=== PATIENT | male | born 1985 | race Caucasian/White ===

== ENCOUNTER 2021-09-30 06:56 | Emergency (ER) | payer MEDICAID ==
[2021-09-30] MEDS ORDERED: Diazepam 5 MG Tab PO ONE ×2 (07:34→10:15)
[2021-09-30] MEDS ORDERED: Ondansetron 4 MG Tab.DIS PO ONE ×2 (07:34→08:19)
--- NOTE | 2021-09-30 07:42 | EDM.PDOCBH ---
ED HPI GENERAL MEDICAL PROBLEM - General Chief Complaint: Drug or Alcohol Abuse Stated Complaint: VOMITING,HOT SWEATS Time Seen by Provider: 09/30/21 07:25 Source of Information: Reports: Patient, RN. Denies: Old Records History Limitations: Reports: Other (no old records) - History of Present Illness INITIAL COMMENTS - FREE TEXT/NARRATIVE: 36 yo male presents requesting detox. He is from [place] and was last detox'd about a month ago. Says he's been vomiting a lot lately. Hasn't eaten much lately either due to his heavy drinking or now his nausea and vomiting. He last drank yesterday. Seems to think he is currently in [place]. 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 (see below) (none) sore throat and some in chest Pain Score (Numeric/FACES): 6 - Related Data Allergies Allergy/AdvReac Type Severity Reaction Status Date / Time No Known Allergies Allergy Verified 09/30/21 07:16 Home Meds: Home Meds Escitalopram [Lexapro] 20 mg PO DAILY 09/30/21 [History] Naltrexone HCl [Revia] 50 mg PO Q8HR 09/30/21 [History] hydrOXYzine HCL [Atarax] 25 mg PO Q8H 09/30/21 [History] Past Medical History HEENT History: Reports: None Cardiovascular History: Reports: None Respiratory History: Reports: None Gastrointestinal History: Reports: None Genitourinary History: Reports: None Musculoskeletal History: Reports: None Neurological History: Reports: None Psychiatric History: Reports: Addiction, Anxiety, Depression Endocrine/Metabolic History: Reports: None Immunologic History: Reports: None Oncologic (Cancer) History: Reports: None Dermatologic History: Reports: None - Infectious Disease History Infectious Disease History: Reports: None - Past Surgical History HEENT Surgical History: Reports: None GI Surgical History: Reports: None Male Surgical History: Reports: None Musculoskeletal Surgical History: Reports: None Social & Family History - Tobacco Use Tobacco Use Comment: current smoker - Recreational Drug Use Recreational Drug Use: No ED ROS GENERAL - Review of Systems Review Of Systems: See Below Constitutional: Reports: Malaise HEENT: Reports: No Symptoms Respiratory: Reports: No Symptoms Cardiovascular: Reports: No Symptoms Endocrine: Reports: No Symptoms GI/Abdominal: Reports: Nausea, Vomiting. Denies: Black Stool, Bloody Stool, Diarrhea, Hematemesis : Reports: No Symptoms Musculoskeletal: Reports: No Symptoms Skin: Reports: No Symptoms Neurological: Reports: Tremors Psychiatric: Reports: Anxiety ED EXAM, BEHAVIORAL HEALTH - Physical Exam Exam: See Below Exam Limited By: No Limitations General Appearance: Alert, WD/WN, Mild Distress Eye Exam: Bilateral Eye: Normal Inspection Ears: Normal External Exam, Normal Canal, Hearing Grossly Normal, Normal TMs Nose: Normal Inspection, No Blood Throat/Mouth: Normal Inspection, Normal Lips, Normal Oropharynx, Normal Voice, No Airway Compromise Head: Atraumatic, Normocephalic Neck: Normal Inspection Respiratory/Chest: No Respiratory Distress, Lungs Clear, Normal Breath Sounds, No Accessory Muscle Use Cardiovascular: Regular Rate, Rhythm, No Edema GI/Abdominal: Normal Bowel Sounds, Soft, No Distention, Tender (mild RUQ tenderness). No: Distended Back Exam: Normal Inspection. No: CVA Tenderness (R), CVA Tenderness (L) Extremities: Normal Inspection, Normal Range of Motion, Non-Tender, No Pedal Edema Neurological: Alert, Normal Mood/Affect, CN II-XII Intact, Normal Cognition, No Motor/Sensory Deficits, Tremor Psychiatric: Alert, Other (anxious) Skin Exam: Warm, Dry, Intact, Normal color, No rash COURSE, BEHAVIORAL HEALTH COMP - Course Vital Signs: Last Vital Signs Temp 36.5 C 09/30/21 07:15 Pulse 91 09/30/21 07:15 Resp 30 H 09/30/21 07:15 BP 138/99 H 09/30/21 07:15 Pulse Ox 98 09/30/21 07:15 Orders, Labs, Meds: Active Orders 24 hr Category Date Time Status Alum Hydrox/Mag Hydrox/Simeth [Mag-Al Plus] Med 09/30/21 10:14 Stat 30 ml PO NOW STA diazePAM [Valium.] Med 09/30/21 10:15 Once 5 mg PO ONETIME ONE Medication Orders Al Hydroxide/Mg Hydroxide (Aluminum Hydroxide/Magnesium Hydroxide/Simethicone Susp 30 Ml Cup) 30 ml PO NOW STA Stop: 09/30/21 10:15 Diazepam (Diazepam 5 Mg Tab) 5 mg PO ONETIME ONE Stop: 09/30/21 10:16 Laboratory Tests 09/30/21 09/30/21 09/30/21 Range/Units 07:43 07:43 07:48 WBC 13.7 H (4.5-11.0) K/uL RBC 5.79 (4.30-5.90) M/uL Hgb 17.5 H (12.0-15.0) g/dL Hct 50.7 (40.0-54.0) % MCV 88 (80-98) fL MCH 30 (27-31) pg MCHC 35 (32-36) % Plt Count 234 (150-400) K/uL Sodium (140-148) mmol/L Potassium (3.6-5.2) mmol/L Chloride (100-108) mmol/L Carbon Dioxide (21-32) mmol/L Anion Gap (5.0-14.0) mmol/L BUN (7-18) mg/dL Creatinine (0.8-1.3) mg/dL Est Cr Clr Drug Dosing mL/min Estimated GFR (MDRD) (>60) Glucose (74-106) mg/dL Calcium (8.5-10.1) mg/dL Total Bilirubin (0.2-1.0) mg/dL AST (15-37) U/L ALT (12-78) U/L Alkaline Phosphatase (46-116) U/L Total Protein (6.4-8.2) g/dL Albumin (3.4-5.0) g/dL Globulin (2.3-3.5) g/dL Albumin/Globulin Ratio (1.2-2.2) Urine Color Yellow (YELLOW) Urine Appearance Slightly cloudy A (CLEAR) Urine pH 5.5 (5.0-8.0) Ur Specific [place] >= 1.030 (1.008-1.030) Urine Protein >=300 H (NEGATIVE) mg/dL Urine Glucose (UA) Negative (NEGATIVE) mg/dL Urine Ketones 80 H (NEGATIVE) mg/dL Urine Occult Blood Trace-lysed H (NEGATIVE) Urine Nitrite Negative (NEGATIVE) Urine Bilirubin Negative (NEGATIVE) Urine Urobilinogen 0.2 (0.2-1.0) EU/dL Ur Leukocyte Esterase Negative (NEGATIVE) Urine RBC 0-5 (0-5) Urine WBC Not seen (0-5) Ur Epithelial Cells Not seen Amorphous Sediment Few Urine Bacteria Not seen Urine Mucus Moderate Urine Other See note Urine Opiates Screen Negative (NEGATIVE) Ur Oxycodone Screen Negative (NEGATIVE) Urine Methadone Screen Negative (NEGATIVE) Ur Propoxyphene Screen Negative (NEGATIVE) Ur Barbiturates Screen Negative (NEGATIVE) Ur Tricyclics Screen Negative (NEGATIVE) Ur Phencyclidine Scrn Negative (NEGATIVE) Ur Amphetamine Screen Negative (NEGATIVE) U Methamphetamines Scrn Negative (NEGATIVE) Urine MDMA Screen Negative (NEGATIVE) U Benzodiazepines Scrn Negative (NEGATIVE) U Cocaine Metab Screen Negative (NEGATIVE) U Marijuana (THC) Screen Negative (NEGATIVE) Ethyl Alcohol mg/dL 09/30/21 09/30/21 Range/Units 07:48 08:02 WBC (4.5-11.0) K/uL RBC (4.30-5.90) M/uL Hgb (12.0-15.0) g/dL Hct (40.0-54.0) % MCV (80-98) fL MCH (27-31) pg MCHC (32-36) % Plt Count (150-400) K/uL Sodium 136 L (140-148) mmol/L Potassium 4.1 (3.6-5.2) mmol/L Chloride 92 L (100-108) mmol/L Carbon Dioxide 19 L (21-32) mmol/L Anion Gap 29.1 H (5.0-14.0) mmol/L BUN 15 (7-18) mg/dL Creatinine 1.0 (0.8-1.3) mg/dL Est Cr Clr Drug Dosing 106.46 mL/min Estimated GFR (MDRD) > 60 (>60) Glucose 88 (74-106) mg/dL Calcium 9.0 (8.5-10.1) mg/dL Total Bilirubin 1.9 H (0.2-1.0) mg/dL AST 79 H (15-37) U/L ALT 104 H (12-78) U/L Alkaline Phosphatase 88 (46-116) U/L Total Protein 8.4 H (6.4-8.2) g/dL Albumin 4.8 (3.4-5.0) g/dL Globulin 3.6 H (2.3-3.5) g/dL Albumin/Globulin Ratio 1.3 (1.2-2.2) Urine Color (YELLOW) Urine Appearance (CLEAR) Urine pH (5.0-8.0) Ur Specific [place] (1.008-1.030) Urine Protein (NEGATIVE) mg/dL Urine Glucose (UA) (NEGATIVE) mg/dL Urine Ketones (NEGATIVE) mg/dL Urine Occult Blood (NEGATIVE) Urine Nitrite (NEGATIVE) Urine Bilirubin (NEGATIVE) Urine Urobilinogen (0.2-1.0) EU/dL Ur Leukocyte Esterase (NEGATIVE) Urine RBC (0-5) Urine WBC (0-5) Ur Epithelial Cells Amorphous Sediment Urine Bacteria Urine Mucus Urine Other Urine Opiates Screen (NEGATIVE) Ur Oxycodone Screen (NEGATIVE) Urine Methadone Screen (NEGATIVE) Ur Propoxyphene Screen (NEGATIVE) Ur Barbiturates Screen (NEGATIVE) Ur Tricyclics Screen (NEGATIVE) Ur Phencyclidine Scrn (NEGATIVE) Ur Amphetamine Screen (NEGATIVE) U Methamphetamines Scrn (NEGATIVE) Urine MDMA Screen (NEGATIVE) U Benzodiazepines Scrn (NEGATIVE) U Cocaine Metab Screen (NEGATIVE) U Marijuana (THC) Screen (NEGATIVE) Ethyl Alcohol 104 mg/dL Medications Generic Name Dose Route Start Last Admin Trade Name Freq PRN Reason Stop Dose Admin Al Hydroxide/Mg Hydroxide 30 ml 09/30/21 10:14 Aluminum Hydroxide/Magnesium Hydroxide/Simethicone Susp 30 Ml Cup PO 09/30/21 10:15 NOW STA Diazepam 5 mg 09/30/21 10:15 Diazepam 5 Mg Tab PO 09/30/21 10:16 ONETIME ONE Discontinued Medications Generic Name Dose Route Start Last Admin Trade Name Freq PRN Reason Stop Dose Admin Diazepam 10 mg 09/30/21 07:34 09/30/21 07:41 Diazepam 5 Mg Tab PO 09/30/21 07:35 10 mg ONETIME ONE Administration Ondansetron HCl 4 mg 09/30/21 07:34 09/30/21 07:41 Ondansetron 4 Mg Tab.Dis PO 09/30/21 07:35 4 mg ONETIME ONE Administration Ondansetron HCl 4 mg 09/30/21 08:19 09/30/21 08:39 Ondansetron 4 Mg Tab.Dis PO 09/30/21 08:20 4 mg ONETIME ONE Administration Departure - Departure Time of Disposition: 10:30 Disposition: DC/Tfer to Other 70 Condition: Fair Clinical Impression: Alcohol abuse Alcohol dependence Qualifiers: Substance use status: with intoxication Complication of substance-induced condition: with unspecified complication Qualified Code(s): F10.229 - Alcohol dependence with intoxication, unspecified Alcoholic hepatitis Qualifiers: Ascites presence: without ascites Qualified Code(s): K70.10 - Alcoholic hepatitis without ascites Alcohol intoxication Qualifiers: Complication of substance-induced condition: with unspecified complication Qualified Code(s): F10.929 - Alcohol use, unspecified with intoxication, unspecified Alcoholic gastritis Qualifiers: Chronicity: acute Gastritis bleeding: without bleeding Qualified Code(s): K29.20 - Alcoholic gastritis without bleeding - Discharge Information *PRESCRIPTION DRUG MONITORING PROGRAM REVIEWED*: Not Applicable *COPY OF PRESCRIPTION DRUG MONITORING REPORT IN PATIENT GÓMEZ: Not Applicable Referrals: PCP,None [Primary Care Provider] - Forms: ED Department Discharge Sepsis Event Note (ED) - Evaluation Sepsis Screening Result: No Definite Risk - Focused Exam Vital Signs: Vital Signs Temp Pulse Resp BP Pulse Ox 09/30/21 07:15 36.5 C 91 30 H 138/99 H 98 09/30/21 07:12 36.5 C 91 30 H 138/99 H 98 - My Orders Last 24 Hours: My Active Orders 09/30/21 10:14 Alum Hydrox/Mag Hydrox/Simeth [Mag-Al Plus] 30 ml PO NOW STA 09/30/21 10:15 diazePAM [Valium.] 5 mg PO ONETIME ONE - Assessment/Plan Last 24 Hours: My Active Orders 09/30/21 10:14 Alum Hydrox/Mag Hydrox/Simeth [Mag-Al Plus] 30 ml PO NOW STA 09/30/21 10:15 diazePAM [Valium.] 5 mg PO ONETIME ONE
[2021-09-30] MEDS ORDERED: Aluminum Hydroxide/Magnesium Hydroxide/Simethicone Susp 30 ML Cup PO STA (10:14)
== END 2021-09-30 10:47 | disposition other institution (70) ==
LOC: JP.ED 06:56
DX: K70.10 Alcoholic hepatitis without ascites (principal); K29.20 Alcoholic gastritis without bleeding; F10.229 Alcohol dependence with intoxication, unspecified; Y90.5 Blood alcohol level of 100-119 mg/100 ml
CPT/HCPCS: 36415; 80053; 80305; 80307; 81001; 85027; 99284; A9270

== ENCOUNTER 2021-10-02 22:52 | Inpatient (IN) | payer MEDICAID ==
[2021-10-02] MEDS ORDERED: LORazepam 2 MG/ML SDV IVPUSH ONE (23:17)
[2021-10-02] MEDS ORDERED: Pantoprazole 40 MG Vial IVPUSH ONE (23:17)
--- NOTE | 2021-10-02 23:27 | EDM.PDOCBH ---
ED HPI GENERAL MEDICAL PROBLEM - General Chief Complaint: Drug or Alcohol Abuse Stated Complaint: MEDICAL [facility]IA [facility] Time Seen by Provider: 10/02/21 23:00 Source of Information: Reports: EMS, Provider History Limitations: Reports: Altered Mental Status, Physical Impairment - History of Present Illness INITIAL COMMENTS - FREE TEXT/NARRATIVE: 36-year-old male, chronic alcoholic who is experienced DTs in the past, presents from [facility] acutely confused, mild to moderately agitated, and continuous nausea and vomiting. He attempted to leave [place] several times in his socks, not really because he was being uncooperative but because he was just confused and agitated. They have been fully medicated and just cannot handle him, they also cannot get him to stop vomiting. He is not complaining of pain. He does not know what day it is but he is oriented to person and place. His long-term memory seems to be intact. Onset: Unknown/Unsure Associated Symptoms: Reports: Nausea/Vomiting - Related Data Allergies Allergy/AdvReac Type Severity Reaction Status Date / Time No Known Allergies Allergy Verified 10/02/21 22:54 Home Meds: Home Meds Escitalopram [Lexapro] 20 mg PO DAILY 09/30/21 [History] Naltrexone HCl [Revia] 50 mg PO Q8HR 09/30/21 [History] hydrOXYzine HCL [Atarax] 25 mg PO Q8H 09/30/21 [History] Past Medical History HEENT History: Reports: None Cardiovascular History: Reports: None Respiratory History: Reports: None Gastrointestinal History: Reports: GERD Genitourinary History: Reports: None Musculoskeletal History: Reports: None Neurological History: Reports: Concussion Psychiatric History: Reports: Addiction, Anxiety, Depression Endocrine/Metabolic History: Reports: None Immunologic History: Reports: None Oncologic (Cancer) History: Reports: None Dermatologic History: Reports: None - Infectious Disease History Infectious Disease History: Reports: None - Past Surgical History HEENT Surgical History: Reports: None GI Surgical History: Reports: None Male Surgical History: Reports: None Musculoskeletal Surgical History: Reports: None Social & Family History - Tobacco Use Tobacco Use Status *Q: Current Every Day Tobacco User Years of Tobacco use: 2 Packs/Tins Daily: 0.5 - Caffeine Use Caffeine Use: Reports: Coffee, Energy Drinks, Soda - Alcohol Use Days Per Week of Alcohol Use: 7 Number of Drinks Per Day: 20 Total Drinks Per Week: 140 - Recreational Drug Use Recreational Drug Use: Yes Recreational Drug Type: Reports: Cocaine, Ecstasy, Marijuana/Hashish, Methamphetamine, Oxycodone Recreational Drug Use Frequency: Socially ED ROS GENERAL - Review of Systems Review Of Systems: Unable To Obtain Reason Not Obtained: Patient just cannot give a review of systems, random answers Constitutional: Denies: Fever Respiratory: Denies: Shortness of Breath GI/Abdominal: Reports: Nausea, Vomiting Neurological: Reports: Confusion ED EXAM, BEHAVIORAL HEALTH - Physical Exam Exam: See Below Exam Limited By: Altered Mental Status General Appearance: Alert, Other (Looks uncomfortable due to the active retching, nausea and vomiting and anxiety but not acutely distressed) Eye Exam: Bilateral Eye: Conjunctival Injection (Conjunctival injection, no jaundice) Head: Atraumatic Neck: Non-Tender Respiratory/Chest: Lungs Clear Cardiovascular: Regular Rate, Rhythm, Tachycardia GI/Abdominal: Non-Tender Extremities: Normal Inspection Neurological: Alert, No Motor/Sensory Deficits, Disoriented to Time, Other (Moderate resting tremor) Psychiatric: Alert, Restless, Disoriented Skin Exam: Warm, Dry COURSE, BEHAVIORAL HEALTH COMP - Course Vital Signs: Last Vital Signs Temp 96.4 F L 10/03/21 02:00 Pulse 91 10/03/21 06:00 Resp 12 10/03/21 06:00 BP 125/72 10/03/21 06:00 Pulse Ox 98 10/03/21 06:00 Orders, Labs, Meds: Medication Orders Acetaminophen (Acetaminophen 325 Mg Tab) 650 mg PO Q4H PRN PRN Reason: Pain (Mild 1-3)/fever Folic Acid (Folic Acid 1 Mg Tab) 1 mg PO DAILY LIBRADO Gabapentin (Gabapentin 400 Mg Cap) 400 mg PO TID LIBRADO Last Admin: 10/03/21 02:32 Dose: Not Given Documented by: RAYMUNDO Haloperidol Lactate (Haloperidol Lactate 5 Mg/Ml Sdv) 5 mg IVPUSH Q4H PRN PRN Reason: Agitation/Hallucinations Lorazepam (Lorazepam 2 Mg/Ml Sdv) 0.5 mg IVPUSH Q4H PRN PRN Reason: Nausea/Vomiting Lorazepam (Lorazepam 1 Mg Tab) 0 mg PO ASDIRECTED LIBRADO; Protocol Lorazepam (Lorazepam 2 Mg/Ml Sdv) 0 mg IV ASDIRECTED LIBRADO; Protocol Last Admin: 10/03/21 04:37 Dose: 2 mg Documented by: Admin: 10/03/21 01:52 Dose: 2 mg Documented by: RAYMUNDO Magnesium Hydroxide (Magnesium Hydroxide 400 Mg/5 Ml Susp 30 Ml Cup) 30 ml PO Q12H PRN PRN Reason: Constipation Melatonin (Melatonin 3 Mg Tab) 9 mg PO BEDTIME LIBRADO Ondansetron HCl (Ondansetron 4 Mg/2 Ml Sdv) 4 mg IV Q6H PRN PRN Reason: Nausea/Vomiting Ondansetron HCl (Ondansetron 4 Mg Tab.Dis) 4 mg PO Q6H PRN PRN Reason: Nausea able to take PO Pantoprazole Sodium (Pantoprazole 40 Mg Tab.Cr) 40 mg PO BIDAC LIBRADO Senna/Docusate Sodium (Docusate Sodium/Sennosides 50-8.6 Mg Tab) 1 tab PO BID PRN PRN Reason: Constipation Thiamine HCl (Thiamine 100 Mg Tab) 100 mg PO DAILY LIBRADO Laboratory Tests 10/02/21 10/02/21 Range/Units 23:27 23:27 WBC 6.9 (4.5-11.0) K/uL RBC 5.11 (4.30-5.90) M/uL Hgb 15.9 H (12.0-15.0) g/dL Hct 45.7 (40.0-54.0) % MCV 89 (80-98) fL MCH 31 (27-31) pg MCHC 35 (32-36) % Plt Count 139 L (150-400) K/uL Neut % (Auto) 83.5 H (36-66) % Lymph % (Auto) 7.4 L (24-44) % [place] % (Auto) 8.2 H (2-6) % Eos % (Auto) 0.6 L (2-4) % Baso % (Auto) 0.3 (0-1) % Sodium 135 L (140-148) mmol/L Potassium 3.1 L (3.6-5.2) mmol/L Chloride 93 L (100-108) mmol/L Carbon Dioxide 32 (21-32) mmol/L Anion Gap 13.1 (5.0-14.0) mmol/L BUN 20 H (7-18) mg/dL Creatinine 1.0 (0.8-1.3) mg/dL Est Cr Clr Drug Dosing 106.46 mL/min Estimated GFR (MDRD) > 60 (>60) Glucose 150 H (74-106) mg/dL Calcium 10.1 (8.5-10.1) mg/dL Total Bilirubin 1.2 H (0.2-1.0) mg/dL AST 79 H (15-37) U/L ALT 75 (12-78) U/L Alkaline Phosphatase 81 (46-116) U/L Total Protein 7.6 (6.4-8.2) g/dL Albumin 4.2 (3.4-5.0) g/dL Globulin 3.4 (2.3-3.5) g/dL Albumin/Globulin Ratio 1.2 (1.2-2.2) Lipase 74 (73-393) U/L Medications Generic Name Dose Route Start Last Admin Trade Name Freq PRN Reason Stop Dose Admin Acetaminophen 650 mg 10/03/21 01:09 Acetaminophen 325 Mg Tab PO Q4H PRN Pain (Mild 1-3)/fever Folic Acid 1 mg 10/03/21 09:00 Folic Acid 1 Mg Tab PO DAILY LIBRADO Gabapentin 400 mg 10/03/21 01:09 10/03/21 02:32 Gabapentin 400 Mg Cap PO Not Given TID LIBRADO Haloperidol Lactate 5 mg 10/03/21 01:09 Haloperidol Lactate 5 Mg/Ml Sdv IVPUSH Q4H PRN Agitation/Hallucinations Lorazepam 0.5 mg 10/03/21 01:09 Lorazepam 2 Mg/Ml Sdv IVPUSH Q4H PRN Nausea/Vomiting Lorazepam 0 mg 10/03/21 01:09 Lorazepam 1 Mg Tab PO ASDIRECTED LIBRADO Protocol Lorazepam 0 mg 10/03/21 01:09 10/03/21 04:37 Lorazepam 2 Mg/Ml Sdv IV 2 mg ASDIRECTED LIBRADO Administration Protocol Magnesium Hydroxide 30 ml 10/03/21 01:09 Magnesium Hydroxide 400 Mg/5 Ml Susp 30 Ml Cup PO Q12H PRN Constipation Melatonin 9 mg 10/03/21 21:00 Melatonin 3 Mg Tab PO BEDTIME LIBRADO Ondansetron HCl 4 mg 10/03/21 01:09 Ondansetron 4 Mg/2 Ml Sdv IV Q6H PRN Nausea/Vomiting Ondansetron HCl 4 mg 10/03/21 01:09 Ondansetron 4 Mg Tab.Dis PO Q6H PRN Nausea able to take PO Pantoprazole Sodium 40 mg 10/03/21 07:30 Pantoprazole 40 Mg Tab.Cr PO BIDAC LIBRADO Senna/Docusate Sodium 1 tab 10/03/21 01:09 Docusate Sodium/Sennosides 50-8.6 Mg Tab PO BID PRN Constipation Thiamine HCl 100 mg 10/03/21 09:00 Thiamine 100 Mg Tab PO DAILY LIBRADO Discontinued Medications Generic Name Dose Route Start Last Admin Trade Name Freq PRN Reason Stop Dose Admin Haloperidol Lactate 5 mg 10/03/21 00:03 10/03/21 00:11 Haloperidol Lactate 5 Mg/Ml Sdv IVPUSH 10/03/21 00:04 5 mg ONETIME ONE Administration Multivitamins/Minerals 10 ml/ 1,015.2 mls @ 200 mls/hr 10/03/21 01:09 10/03/21 02:00 Thiamine HCl 100 mg/ Folic IV 10/03/21 06:13 200 mls/hr Acid 1 mg/ Magnesium Sulfate 2 ONETIME ONE Administration gm/ Sodium Chloride Potassium Chloride 20 meq/ 112 mls @ 50 mls/hr 10/03/21 01:30 10/03/21 04:04 Lidocaine HCl 2 ml/ Sodium IV 10/03/21 05:29 50 mls/hr Chloride Q2H LIBRADO Administration Potassium Chloride Confirm 10/03/21 01:36 10/03/21 02:00 Kcl In Water 20 Meq/100 Ml Administered 10/03/21 01:37 50 mls/hr Dose Administration 100 mls @ as directed .ROUTE .STK-MED ONE Potassium Chloride Confirm 10/03/21 01:37 10/03/21 02:33 Kcl In Water 20 Meq/100 Ml Administered 10/03/21 01:38 Not Given Dose 100 mls @ as directed .ROUTE .STK-MED ONE Lidocaine HCl Confirm 10/03/21 01:38 10/03/21 02:33 Lidocaine 1% 5 Ml Sdv Administered 10/03/21 01:39 Not Given Dose 5 ml .ROUTE .STK-MED ONE Lorazepam 2 mg 10/02/21 23:17 10/02/21 23:19 Lorazepam 2 Mg/Ml Sdv IVPUSH 10/02/21 23:18 2 mg ONETIME ONE Administration Pantoprazole Sodium 40 mg 10/02/21 23:17 10/02/21 23:30 Pantoprazole 40 Mg Vial IVPUSH 10/02/21 23:18 40 mg ONETIME ONE Administration Re-Assessment/Re-Exam: IV is already in place, patient will be given 40 mg of IV Protonix and 2 mg of IV Ativan. CBC, CMP, lipase were obtained and are pending. The hospitalist service was called for admission to ICU. Departure - Departure Time of Disposition: 00:26 Disposition: Admitted As Inpatient 67 Clinical Impression: Alcohol withdrawal syndrome Qualifiers: Complication of substance-induced condition: with delirium Qualified Code(s): F10.231 - Alcohol dependence with withdrawal delirium - Discharge Information Sepsis Event Note (ED) - Evaluation Sepsis Screening Result: No Definite Risk - Focused Exam Vital Signs: Vital Signs Temp Pulse Resp BP Pulse Ox 10/02/21 22:54 98.1 F 118 H 18 139/97 H 95
[2021-10-03] MEDS ORDERED: Haloperidol Lactate 5 MG/ML SDV IVPUSH ONE (00:03)
--- NOTE | 2021-10-03 00:11 | PCM.HP.2 ---
H&P History of Present Illness - General Date of Service: 10/03/21 Admit Problem/Dx: Admission Diagnosis/Problem Admission Diagnosis/Problem Alcohol withdrawal delirium, acute, hyperactive Source of Information: Patient, Provider History Limitations: Reports: Altered Mental Status - History of Present Illness Initial Comments - Free Text/Narative: CC: I'm just waiting for my bed HPI: Ramiro presents to the emergency room from [facility] with increasing confusion, hallucinations and agitation despite aggressive medication management at the detox facility. He is very confused and obviously hallucinating and history is extremely difficult and nearly impossible to gather from him. History that I am able to obtain came from the emergency room personnel. He was seen here 2 days ago after heavy alcohol use asking for detox. He was cleared and sent to [facility]. He has had progressive symptoms over the past couple of days to the point that they are not able to accommodate him because of the severity. He appears to be hallucinating and talking to someone else in the room who is not here. He is not sure of the last time that he drank. He has no idea what day it is. He is pretty vague about what he drinks and how much he drinks. He does report previous difficulties with alcohol withdrawal with confusion and hallucinations but he has never had seizures. He does tell me that he is concerned about his esophagus because of the vomiting that he has been doing. He does not currently report any sore throat, chest pain or abdominal pain. He does not feel short of breath. He has received IV pantoprazole and 2 mg of IV lorazepam so far in the emergency room. Work-up in the emergency room revealed obvious evidence for alcohol withdrawal with delirium tremens. Labs show mild hypokalemia but otherwise are not very impressive. He will be admitted to the intensive care unit for management of alcohol withdrawal. - Related Data Allergies/Adverse Reactions: Allergies Allergy/AdvReac Type Severity Reaction Status Date / Time No Known Allergies Allergy Verified 10/02/21 22:54 Home Medications: Home Meds Escitalopram [Lexapro] 20 mg PO DAILY 09/30/21 [History] Naltrexone HCl [Revia] 50 mg PO Q8HR 09/30/21 [History] hydrOXYzine HCL [Atarax] 25 mg PO Q8H 09/30/21 [History] Past Medical History HEENT History: Reports: None Cardiovascular History: Reports: None Respiratory History: Reports: None Gastrointestinal History: Reports: GERD Genitourinary History: Reports: None Musculoskeletal History: Reports: None Neurological History: Reports: Concussion Psychiatric History: Reports: Addiction, Anxiety, Depression Endocrine/Metabolic History: Reports: None Immunologic History: Reports: None Oncologic (Cancer) History: Reports: None Dermatologic History: Reports: None - Infectious Disease History Infectious Disease History: Reports: None - Past Surgical History HEENT Surgical History: Reports: None GI Surgical History: Reports: None Male Surgical History: Reports: None Musculoskeletal Surgical History: Reports: None Social & Family History - Family History Cardiac: Denies: CAD - Tobacco Use Tobacco Use Status *Q: Current Every Day Tobacco User Years of Tobacco use: 2 Packs/Tins Daily: 0.5 - Caffeine Use Caffeine Use: Reports: Coffee, Energy Drinks, Soda - Alcohol Use Days Per Week of Alcohol Use: 7 Number of Drinks Per Day: 20 Total Drinks Per Week: 140 - Recreational Drug Use Recreational Drug Use: Yes Recreational Drug Type: Reports: Cocaine, Ecstasy, Marijuana/Hashish, Methamphetamine, Oxycodone Recreational Drug Use Frequency: Socially H&P Review of Systems - Review of Systems: Review Of Systems: See Below Free Text/Narrative: A complete 12 point review of systems was obtained. Pertinent positives and negatives are noted in the history of present illness. All other systems were reviewed and were negative except as noted. Exam - Exam Exam: See Below - Vital Signs Vital Signs: Last Vital Signs Temp 36.7 C 10/02/21 22:54 Pulse 118 H 10/02/21 22:54 Resp 18 10/02/21 22:54 BP 139/97 H 10/02/21 22:54 Pulse Ox 95 10/02/21 22:54 Weight: 104.326 kg - Exam Quality Assessment: No: Supplemental Oxygen General: Alert, Cooperative. No: Oriented, Mild Distress HEENT: Conjunctiva Clear, Mucosa Moist & [place]. No: Scleral Icterus Neck: Supple, Trachea Midline. No: Lymphadenopathy Lungs: Clear to Auscultation, Normal Respiratory Effort Cardiovascular: Regular Rhythm, Tachycardia. No: Systolic Murmur GI/Abdominal Exam: Normal Bowel Sounds, Soft, Non-Tender, No Distention Extremities: No Pedal Edema. No: Increased Warmth Peripheral Pulses: 2+: Dorsalis Pedis (L), Dorsalis Pedis (R) Skin: Warm, Dry Neuro Extensive - Mental Status: Alert, Nl Response to Commands. No: Oriented x3 Neuro Extensive - Motor, Sensory, Reflexes: Tremor. No: Dysarthria, Abnormal Motor Psychiatric: Alert, Anxious, Hallucinations - Patient Data Lab Results Last 24 hrs: Laboratory Results - last 24 hr 10/02/21 10/02/21 Range/Units 23:27 23:27 WBC 6.9 (4.5-11.0) K/uL RBC 5.11 (4.30-5.90) M/uL Hgb 15.9 H (12.0-15.0) g/dL Hct 45.7 (40.0-54.0) % MCV 89 (80-98) fL MCH 31 (27-31) pg MCHC 35 (32-36) % Plt Count 139 L (150-400) K/uL Neut % (Auto) 83.5 H (36-66) % Lymph % (Auto) 7.4 L (24-44) % [place] % (Auto) 8.2 H (2-6) % Eos % (Auto) 0.6 L (2-4) % Baso % (Auto) 0.3 (0-1) % Sodium 135 L (140-148) mmol/L Potassium 3.1 L (3.6-5.2) mmol/L Chloride 93 L (100-108) mmol/L Carbon Dioxide 32 (21-32) mmol/L Anion Gap 13.1 (5.0-14.0) mmol/L BUN 20 H (7-18) mg/dL Creatinine 1.0 (0.8-1.3) mg/dL Est Cr Clr Drug Dosing 106.46 mL/min Estimated GFR (MDRD) > 60 (>60) Glucose 150 H (74-106) mg/dL Calcium 10.1 (8.5-10.1) mg/dL Total Bilirubin 1.2 H (0.2-1.0) mg/dL AST 79 H (15-37) U/L ALT 75 (12-78) U/L Alkaline Phosphatase 81 (46-116) U/L Total Protein 7.6 (6.4-8.2) g/dL Albumin 4.2 (3.4-5.0) g/dL Globulin 3.4 (2.3-3.5) g/dL Albumin/Globulin Ratio 1.2 (1.2-2.2) Lipase 74 (73-393) U/L Result Diagrams: 10/02/21 23:27 10/02/21 23:27 Sepsis Event Note - Evaluation Sepsis Screening Result: No Definite Risk - Focused Exam Vital Signs: Vital Signs Temp Pulse Resp BP Pulse Ox 10/02/21 22:54 36.7 C 118 H 18 139/97 H 95 *Q Meaningful Use (ADM) - VTE Risk Assess *Q Each Risk Factor Represents 1 Point: Obesity ( BMI > 25 kg/m2) Total Score 1 Point Risk Factors: 1 Each Risk Factor Represents 2 Points: None Total Score 2 Point Risk Factors: 0 Each Risk Factor Represents 3 Points: None Total Score 3 Point Risk Factors: 0 Each Risk Factor Represents 5 Points: None Total Score 5 Point Risk Factors: 0 Venous Thromboembolism Risk Factor Score *Q: 1 - Problem List (1) Alcohol withdrawal delirium, acute, hyperactive SNOMED Code(s): 3578406, 04313705, 77547777935977670 ICD Code: F10.231 - ALCOHOL DEPENDENCE WITH WITHDRAWAL DELIRIUM Status: Acute Current Visit: Yes (2) Alcohol dependence SNOMED Code(s): 42990394 ICD Code: F10.20 - ALCOHOL DEPENDENCE, UNCOMPLICATED Status: Acute Current Visit: No Qualifiers: Substance use status: in withdrawal Complication of substance-induced condition: with delirium Qualified Code(s): F10.231 - Alcohol dependence with withdrawal delirium Problem List Initiated/Reviewed/Updated: Yes Orders Last 24hrs: Active Orders 24 hr Category Date Time Status Patient Status Manage Transfer [TRANSFER] Routine ADT 10/03/21 00:04 Ordered Resuscitation Status Routine Resus Stat 10/03/21 00:05 Ordered Assessment/Plan Comment:: ASSESSMENT AND PLAN - Alcohol withdrawal with delirium tremens-currently in the hyperactive phase of alcohol withdrawal with obvious hallucinations and some agitation. He has been redirectable so far. History of similar episodes but no seizures. Unknown date and time of last drink. -CIWA protocol with lorazepam -Haldol for severe agitation and hallucinations -Banana bag tonight -Supplement thiamine and folate -Cardiac monitoring and pulse oximetry -Further discussion about alcohol cessation when he is through the withdrawal phase Alcohol dependence-reported long history of alcohol use with large quantities and previous alcohol withdrawal. -Management as above Hypokalemia-with his nausea and vomiting I am planning to supplement via the IV route overnight and will recheck tomorrow. Maintenance issues - -DVT prophylaxis-mechanical -GI prophylaxis-PPI -Nutrition-regular -Luu catheter-not indicated CODE STATUS -full code Admission justification -this patient will be admitted for inpatient services and is medically appropriate meeting medical necessity for inpatient admission as outlined in my documentation. I reasonably expect the patient will require inpatient services that span a period time over 2 midnights. I reasonably expect this patient to be discharged or transferred within 96 hours after admission to the [facility]. Disposition -I anticipate discharge home after the hospital stay Cr Luna M.D. - Mortality Measure Prognosis:: Good
[2021-10-03] MEDS ORDERED: LORazepam 2 MG/ML SDV IVPUSH PRN (01:09)
[2021-10-03] MEDS ORDERED: Ondansetron 4 MG Tab.DIS PO PRN (01:09)
[2021-10-03] MEDS ORDERED: MVI, Adult with Vitamin K 10 ML, Thiamine 100 MG, Folic Acid 1 MG, Magnesium Sulfate 2 ... IV ONE ×5 (01:09)
[2021-10-03] MEDS ORDERED: Magnesium Hydroxide 400 MG/5 ML Susp 30 ML Cup PO PRN (01:09)
[2021-10-03] MEDS ORDERED: Ondansetron 4 MG/2 ML SDV IV PRN (01:09)
[2021-10-03 01:19] LABS: CORONAVIRUS COVID-19 NAA POSITIVE (NEGATIVE)
[2021-10-03] MEDS ORDERED: Potassium Chloride 100 ML ONE ×2 (01:36→01:37)
[2021-10-03] MEDS: LORazepam 2 MG/ML SDV IV SCH ×2 (01:52→04:37)
[2021-10-03] MEDS: Potassium Chloride 20 MEQ, Lidocaine 1% 2 ML in Sodium Chloride 0.9% 100 ML IV SCH ×2 (02:05→04:04)
[2021-10-03] MEDS: Gabapentin 400 MG Cap PO SCH ×4 (02:32→21:32)
[2021-10-03] MEDS: LORazepam 1 MG Tab PO SCH ×4 (07:24→18:12)
[2021-10-03] MEDS: Pantoprazole 40 MG Tab.CR PO SCH ×2 (07:27→15:41)
[2021-10-03] MEDS: Folic Acid 1 MG Tab PO SCH (08:17)
[2021-10-03] MEDS: Thiamine 100 MG Tab PO SCH (08:17)
--- NOTE | 2021-10-03 09:39 | PCM.PN ---
- General Info Date of Service: 10/03/21 Subjective Update: No acute events overnight. Patient was lethargic and sleeping when I saw him this morning so I was not able to get any history from him. He has been awake to eat here and there. Continues to be somewhat agitated and impulsive. He has received multiple doses of lorazepam and some Haldol to help with his alcohol withdrawal. When he is medicated his vital signs are stable but he does become more hypertensive and tachycardic when he is nearing his next dose of medication. - Review of Systems General: Denies: Fever - Patient Data Vitals - Most Recent: Last Vital Signs Temp 36.8 C 10/03/21 07:00 Pulse 97 10/03/21 09:00 Resp 16 10/03/21 09:00 BP 130/65 10/03/21 09:00 Pulse Ox 96 10/03/21 08:00 Weight - Most Recent: 97.069 kg I&O - Last 24 Hours: Intake & Output 10/02/21 10/03/21 10/03/21 22:59 06:59 14:59 Intake Total 998 Output Total 250 Balance 998 -250 Lab Results Last 24 Hours: Laboratory Results - last 24 hr 10/02/21 10/02/21 10/03/21 Range/Units 23:27 23:27 00:24 WBC 6.9 (4.5-11.0) K/uL RBC 5.11 (4.30-5.90) M/uL Hgb 15.9 H (12.0-15.0) g/dL Hct 45.7 (40.0-54.0) % MCV 89 (80-98) fL MCH 31 (27-31) pg MCHC 35 (32-36) % Plt Count 139 L (150-400) K/uL Neut % (Auto) 83.5 H (36-66) % Lymph % (Auto) 7.4 L (24-44) % [place] % (Auto) 8.2 H (2-6) % Eos % (Auto) 0.6 L (2-4) % Baso % (Auto) 0.3 (0-1) % Sodium 135 L (140-148) mmol/L Potassium 3.1 L (3.6-5.2) mmol/L Chloride 93 L (100-108) mmol/L Carbon Dioxide 32 (21-32) mmol/L Anion Gap 13.1 (5.0-14.0) mmol/L BUN 20 H (7-18) mg/dL Creatinine 1.0 (0.8-1.3) mg/dL Est Cr Clr Drug Dosing 106.46 mL/min Estimated GFR (MDRD) > 60 (>60) Glucose 150 H (74-106) mg/dL Calcium 10.1 (8.5-10.1) mg/dL Total Bilirubin 1.2 H (0.2-1.0) mg/dL AST 79 H (15-37) U/L ALT 75 (12-78) U/L Alkaline Phosphatase 81 (46-116) U/L Total Protein 7.6 (6.4-8.2) g/dL Albumin 4.2 (3.4-5.0) g/dL Globulin 3.4 (2.3-3.5) g/dL Albumin/Globulin Ratio 1.2 (1.2-2.2) Lipase 74 (73-393) U/L Influenza Type A RNA Negative (NEGATIVE) RSV RNA (INAAT) Negative (NEGATIVE) Influenza Type B RNA Negative (NEGATIVE) SARS-CoV-2 RNA (MAGDA) Positive H (NEGATIVE) Med Orders - Current: Current Medications Acetaminophen (Acetaminophen 325 Mg Tab) 650 mg PO Q4H PRN PRN Reason: Pain (Mild 1-3)/fever Folic Acid (Folic Acid 1 Mg Tab) 1 mg PO DAILY [facility] Last Admin: 10/03/21 08:17 Dose: 1 mg Documented by: Gabapentin (Gabapentin 400 Mg Cap) 400 mg PO TID LIBRADO Last Admin: 10/03/21 08:17 Dose: 400 mg Documented by: Haloperidol Lactate (Haloperidol Lactate 5 Mg/Ml Sdv) 5 mg IVPUSH Q4H PRN PRN Reason: Agitation/Hallucinations Lorazepam (Lorazepam 2 Mg/Ml Sdv) 0.5 mg IVPUSH Q4H PRN PRN Reason: Nausea/Vomiting Lorazepam (Lorazepam 1 Mg Tab) 0 mg PO ASDIRECTED LIBRADO; Protocol Last Admin: 10/03/21 07:24 Dose: 1 mg Documented by: Lorazepam (Lorazepam 2 Mg/Ml Sdv) 0 mg IV ASDIRECTED LIBRADO; Protocol Last Admin: 10/03/21 04:37 Dose: 2 mg Documented by: Magnesium Hydroxide (Magnesium Hydroxide 400 Mg/5 Ml Susp 30 Ml Cup) 30 ml PO Q12H PRN PRN Reason: Constipation Melatonin (Melatonin 3 Mg Tab) 9 mg PO BEDTIME [facility] Ondansetron HCl (Ondansetron 4 Mg/2 Ml Sdv) 4 mg IV Q6H PRN PRN Reason: Nausea/Vomiting Ondansetron HCl (Ondansetron 4 Mg Tab.Dis) 4 mg PO Q6H PRN PRN Reason: Nausea able to take PO Pantoprazole Sodium (Pantoprazole 40 Mg Tab.Cr) 40 mg PO BIDAC [facility] Last Admin: 10/03/21 07:27 Dose: 40 mg Documented by: Senna/Docusate Sodium (Docusate Sodium/Sennosides 50-8.6 Mg Tab) 1 tab PO BID PRN PRN Reason: Constipation Thiamine HCl (Thiamine 100 Mg Tab) 100 mg PO DAILY [facility] Last Admin: 10/03/21 08:17 Dose: 100 mg Documented by: Discontinued Medications Haloperidol Lactate (Haloperidol Lactate 5 Mg/Ml Sdv) 5 mg IVPUSH ONETIME ONE Stop: 10/03/21 00:04 Last Admin: 10/03/21 00:11 Dose: 5 mg Documented by: Multivitamins/Minerals 10 ml/Thiamine HCl 100 mg/ Folic Acid 1 mg/ Magnesium Sulfate 2 gm/ Sodium Chloride 1,015.2 mls @ 200 mls/hr IV ONETIME ONE Stop: 10/03/21 06:13 Last Admin: 10/03/21 02:00 Dose: 200 mls/hr Documented by: Potassium Chloride 20 meq/Lidocaine HCl 2 ml/ Sodium Chloride 112 mls @ 50 mls/hr IV Q2H [facility] Stop: 10/03/21 05:29 Last Admin: 10/03/21 04:04 Dose: 50 mls/hr Documented by: Potassium Chloride (Kcl In Water 20 Meq/100 Ml) Confirm Administered Dose 100 mls @ as directed .ROUTE .STK-MED ONE Stop: 10/03/21 01:37 Last Admin: 10/03/21 02:00 Dose: 50 mls/hr Documented by: Potassium Chloride (Kcl In Water 20 Meq/100 Ml) Confirm Administered Dose 100 mls @ as directed .ROUTE .STK-MED ONE Stop: 10/03/21 01:38 Last Admin: 10/03/21 02:33 Dose: Not Given Documented by: Lidocaine HCl (Lidocaine 1% 5 Ml Sdv) Confirm Administered Dose 5 ml .ROUTE .STK-MED ONE Stop: 10/03/21 01:39 Last Admin: 10/03/21 02:33 Dose: Not Given Documented by: Lorazepam (Lorazepam 2 Mg/Ml Sdv) 2 mg IVPUSH ONETIME ONE Stop: 10/02/21 23:18 Last Admin: 10/02/21 23:19 Dose: 2 mg Documented by: Pantoprazole Sodium (Pantoprazole 40 Mg Vial) 40 mg IVPUSH ONETIME ONE Stop: 10/02/21 23:18 Last Admin: 10/02/21 23:30 Dose: 40 mg Documented by: - Exam Quality Assessment: No: Supplemental Oxygen General: No Acute Distress, Sedated. No: Alert Lungs: Normal Respiratory Effort. No: Wheezing Cardiovascular: Regular Rate, Regular Rhythm GI/Abdominal Exam: Soft, No Distention Extremities: No Pedal Edema. No: Increased Warmth Skin: Warm, Dry Psy/Mental Status: No: Alert, Agitated - Patient Data Lab Results Last 24 hrs: Laboratory Results - last 24 hr 10/02/21 10/02/21 10/03/21 Range/Units 23:27 23:27 00:24 WBC 6.9 (4.5-11.0) K/uL RBC 5.11 (4.30-5.90) M/uL Hgb 15.9 H (12.0-15.0) g/dL Hct 45.7 (40.0-54.0) % MCV 89 (80-98) fL MCH 31 (27-31) pg MCHC 35 (32-36) % Plt Count 139 L (150-400) K/uL Neut % (Auto) 83.5 H (36-66) % Lymph % (Auto) 7.4 L (24-44) % [place] % (Auto) 8.2 H (2-6) % Eos % (Auto) 0.6 L (2-4) % Baso % (Auto) 0.3 (0-1) % Sodium 135 L (140-148) mmol/L Potassium 3.1 L (3.6-5.2) mmol/L Chloride 93 L (100-108) mmol/L Carbon Dioxide 32 (21-32) mmol/L Anion Gap 13.1 (5.0-14.0) mmol/L BUN 20 H (7-18) mg/dL Creatinine 1.0 (0.8-1.3) mg/dL Est Cr Clr Drug Dosing 106.46 mL/min Estimated GFR (MDRD) > 60 (>60) Glucose 150 H (74-106) mg/dL Calcium 10.1 (8.5-10.1) mg/dL Total Bilirubin 1.2 H (0.2-1.0) mg/dL AST 79 H (15-37) U/L ALT 75 (12-78) U/L Alkaline Phosphatase 81 (46-116) U/L Total Protein 7.6 (6.4-8.2) g/dL Albumin 4.2 (3.4-5.0) g/dL Globulin 3.4 (2.3-3.5) g/dL Albumin/Globulin Ratio 1.2 (1.2-2.2) Lipase 74 (73-393) U/L Influenza Type A RNA Negative (NEGATIVE) RSV RNA (INAAT) Negative (NEGATIVE) Influenza Type B RNA Negative (NEGATIVE) SARS-CoV-2 RNA (MAGDA) Positive H (NEGATIVE) Result Diagrams: 10/02/21 23:27 10/02/21 23:27 Sepsis Event Note - Evaluation Sepsis Screening Result: No Definite Risk - Focused Exam Vital Signs: Vital Signs Temp Temp Pulse Resp BP Pulse Ox 10/03/21 09:00 97 16 130/65 10/03/21 08:00 96 18 123/70 96 10/03/21 07:00 36.8 C 94 17 113/61 95 10/03/21 06:00 91 12 125/72 98 10/03/21 05:00 94 16 128/72 94 L 10/03/21 04:00 102 H 16 115/59 L 93 L 10/03/21 03:00 99 16 121/51 L 93 L 10/03/21 02:28 93 L 10/03/21 02:00 35.8 C L 96 15 142/78 H 93 L 10/02/21 22:54 36.7 C 118 H 18 139/97 H 95 - Problem List & Annotations (1) Alcohol withdrawal delirium, acute, hyperactive SNOMED Code(s): 3844603, 38533783, [id number] Code(s): F10.231 - ALCOHOL DEPENDENCE WITH WITHDRAWAL DELIRIUM Status: Acute Current Visit: Yes (2) Alcohol dependence SNOMED Code(s): 12677551 Code(s): F10.20 - ALCOHOL DEPENDENCE, UNCOMPLICATED Status: Acute Current Visit: No Qualifiers: Substance use status: in withdrawal Complication of substance-induced condition: with delirium Qualified Code(s): F10.231 - Alcohol dependence with withdrawal delirium - Problem List Review Problem List Initiated/Reviewed/Updated: Yes - My Orders Last 24 Hours: My Active Orders 10/03/21 00:05 Resuscitation Status Routine 10/03/21 01:09 Acetaminophen [TylenoL] 650 mg PO Q4H PRN Docusate Sodium/Sennosides [Senna Plus] 1 tab PO BID PRN Gabapentin [Neurontin] 400 mg PO TID Haloperidol Lactate [Haldol] 5 mg IVPUSH Q4H PRN LORazepam [Ativan] 0.5 mg IVPUSH Q4H PRN LORazepam [Ativan] See Protocol IV ASDIRECTED LORazepam [Ativan] See Protocol PO ASDIRECTED Magnesium Hydroxide [Milk of Magnesia] 30 ml PO Q12H PRN Ondansetron [Zofran ODT] 4 mg PO Q6H PRN Ondansetron [Zofran] 4 mg IV Q6H PRN 10/03/21 01:09 Patient Status [ADT] Routine Antiembolic Devices [RC] .Routine Bedrest Bedside Commode [RC] ASDIRECTED CIWAA Assessment [RC] Q1H Cardiac Monitoring [RC] CONTINUOUS Intake and Output [RC] QSHIFT Notify Provider Vital Signs [RC] ASDIRECTED Notify Provider [RC] PRN Oxygen Therapy [RC] PRN Pulse Oximetry [RC] CONTINUOUS VTE/DVT Education [RC] Per Unit Routine Vital Signs [RC] Q1HR Sequential Compression Device [OM.PC] Routine 10/03/21 07:30 Pantoprazole [ProTONIX] 40 mg PO BIDAC 10/03/21 07:56 Nurse Communication: Isolation [RC] ASDIRECTED Isolation [COMM] Routine 10/03/21 Breakfast Regular Diet [DIET] 10/03/21 09:00 Folic Acid 1 mg PO DAILY Thiamine [Vitamin B-1] 100 mg PO DAILY 10/03/21 21:00 Melatonin 9 mg PO BEDTIME 10/04/21 05:00 BASIC METABOLIC PANEL,BMP [CHEM] Timed CBC W/O DIFF,HEMOGRAM [HEME] Timed (1) COMPREHENSIVE METABOLIC PN,CMP [CHEM] Timed - Plan Plan:: ASSESSMENT AND PLAN - Alcohol withdrawal with delirium tremens-currently in the hyperactive phase of alcohol withdrawal with obvious hallucinations and some agitation. Intermittently agitated though he does seem a little bit better today. -CIWA protocol with lorazepam -Haldol for severe agitation and hallucinations -Supplement thiamine and folate -Cardiac monitoring and pulse oximetry -Further discussion about alcohol cessation when he is through the withdrawal phase Alcohol dependence-reported long history of alcohol use with large quantities and previous alcohol withdrawal. -Management as above Hypokalemia-with his nausea and vomiting I am planning to supplement via the IV route overnight and will recheck tomorrow. Maintenance issues - -DVT prophylaxis-mechanical -GI prophylaxis-PPI -Nutrition-regular Disposition -I anticipate discharge home after the hospital stay Cr Luna M.D.
[2021-10-03] MEDS: Calcium Carbonate 500 MG Tab.Chew PO PRN ×4 (11:14→21:32)
[2021-10-03] MEDS: Haloperidol Lactate 5 MG/ML SDV IVPUSH PRN ×2 (13:47→21:32)
[2021-10-03] MEDS ORDERED: Alum Hydrox/Mag Hydrox/Simeth 15 ML, Lidocaine 2% 15 ML PO ONE ×2 (14:15)
[2021-10-03] MEDS ORDERED: Nicotine 21 MG/24 Hr Patch TRDERM ONE (15:00)
[2021-10-03] MEDS: Acetaminophen 325 MG Tab PO PRN (18:11)
[2021-10-03] MEDS: Melatonin 3 MG Tab PO SCH (21:32)
[2021-10-04] MEDS: LORazepam 1 MG Tab PO SCH ×2 (01:05→21:32)
[2021-10-04] MEDS: Calcium Carbonate 500 MG Tab.Chew PO PRN ×5 (01:06→21:33)
[2021-10-04] MEDS: Haloperidol Lactate 5 MG/ML SDV IVPUSH PRN (05:01)
[2021-10-04] MEDS: Pantoprazole 40 MG Tab.CR PO SCH ×2 (08:04→17:41)
[2021-10-04] MEDS: Thiamine 100 MG Tab PO SCH (08:06)
[2021-10-04] MEDS: Nicotine 21 MG/24 Hr Patch TRDERM SCH (08:07)
[2021-10-04] MEDS: Gabapentin 400 MG Cap PO SCH ×3 (08:08→21:32)
[2021-10-04] MEDS: Folic Acid 1 MG Tab PO SCH (08:34)
--- NOTE | 2021-10-04 14:31 | PCM.PN ---
- General Info Date of Service: 10/04/21 Subjective Update: No acute events overnight. Patient appears to be about finished with his alcohol withdrawal. He is much more alert and interactive today minimal needs for medications to manage his withdrawal. Appetite is improving. Heartburn is improving. No significant nausea. Vital signs have been stable. No fevers. - Patient Data Vitals - Most Recent: Last Vital Signs Temp 35.7 C L 10/04/21 04:00 Pulse 111 H 10/04/21 13:00 Resp 12 10/04/21 13:00 BP 122/57 L 10/04/21 13:00 Pulse Ox 97 10/04/21 13:00 Weight - Most Recent: 88.133 kg I&O - Last 24 Hours: Intake & Output 10/03/21 10/04/21 10/04/21 22:59 06:59 14:59 Intake Total 1100 1260 Output Total 200 Balance 900 1260 Lab Results Last 24 Hours: Laboratory Results - last 24 hr 10/04/21 10/04/21 Range/Units 04:50 04:50 WBC 4.2 L (4.5-11.0) K/uL RBC 4.49 (4.30-5.90) M/uL Hgb 13.9 D (12.0-15.0) g/dL Hct 42.0 (40.0-54.0) % MCV 94 (80-98) fL MCH 31 (27-31) pg MCHC 33 (32-36) % Plt Count 93 L (150-400) K/uL Sodium 140 (140-148) mmol/L Potassium 3.9 (3.6-5.2) mmol/L Chloride 100 (100-108) mmol/L Carbon Dioxide 34 H (21-32) mmol/L Anion Gap 9.9 (5.0-14.0) mmol/L BUN 18 (7-18) mg/dL Creatinine 1.0 (0.8-1.3) mg/dL Est Cr Clr Drug Dosing 106.46 mL/min Estimated GFR (MDRD) > 60 (>60) Glucose 102 (74-106) mg/dL Calcium 8.8 (8.5-10.1) mg/dL Total Bilirubin 0.5 D (0.2-1.0) mg/dL AST 41 H (15-37) U/L ALT 55 (12-78) U/L Alkaline Phosphatase 80 (46-116) U/L Total Protein 6.2 L (6.4-8.2) g/dL Albumin 3.2 L (3.4-5.0) g/dL Globulin 3.0 (2.3-3.5) g/dL Albumin/Globulin Ratio 1.1 L (1.2-2.2) Med Orders - Current: Current Medications Acetaminophen (Acetaminophen 325 Mg Tab) 650 mg PO Q4H PRN PRN Reason: Pain (Mild 1-3)/fever Last Admin: 10/03/21 18:11 Dose: 650 mg Documented by: Calcium Carbonate/Glycine (Calcium Carbonate 500 Mg Tab.Chew) 1,000 mg PO Q2H PRN PRN Reason: Indigestion Last Admin: 10/04/21 05:00 Dose: 1,000 mg Documented by: Folic Acid (Folic Acid 1 Mg Tab) 1 mg PO DAILY [facility] Last Admin: 10/04/21 08:34 Dose: 1 mg Documented by: Gabapentin (Gabapentin 400 Mg Cap) 400 mg PO TID [facility] Last Admin: 10/04/21 08:08 Dose: 400 mg Documented by: Haloperidol Lactate (Haloperidol Lactate 5 Mg/Ml Sdv) 5 mg IVPUSH Q4H PRN PRN Reason: Agitation/Hallucinations Last Admin: 10/04/21 05:01 Dose: 5 mg Documented by: Lorazepam (Lorazepam 2 Mg/Ml Sdv) 0.5 mg IVPUSH Q4H PRN PRN Reason: Nausea/Vomiting Lorazepam (Lorazepam 1 Mg Tab) 0 mg PO ASDIRECTED [facility]; Protocol Last Admin: 10/04/21 01:05 Dose: 1 mg Documented by: Lorazepam (Lorazepam 2 Mg/Ml Sdv) 0 mg IV ASDIRECTED [facility]; Protocol Last Admin: 10/03/21 04:37 Dose: 2 mg Documented by: Magnesium Hydroxide (Magnesium Hydroxide 400 Mg/5 Ml Susp 30 Ml Cup) 30 ml PO Q12H PRN PRN Reason: Constipation Melatonin (Melatonin 3 Mg Tab) 9 mg PO BEDTIME [facility] Last Admin: 10/03/21 21:32 Dose: 9 mg Documented by: Nicotine (Nicotine 21 Mg/24 Hr Patch) 21 mg TRDERM DAILY [facility] Last Admin: 10/04/21 08:07 Dose: 21 mg Documented by: Ondansetron HCl (Ondansetron 4 Mg/2 Ml Sdv) 4 mg IV Q6H PRN PRN Reason: Nausea/Vomiting Ondansetron HCl (Ondansetron 4 Mg Tab.Dis) 4 mg PO Q6H PRN PRN Reason: Nausea able to take PO Last Admin: 10/03/21 11:11 Dose: 4 mg Documented by: Pantoprazole Sodium (Pantoprazole 40 Mg Tab.Cr) 40 mg PO BIDAC [facility] Last Admin: 10/04/21 08:04 Dose: 40 mg Documented by: Senna/Docusate Sodium (Docusate Sodium/Sennosides 50-8.6 Mg Tab) 1 tab PO BID PRN PRN Reason: Constipation Thiamine HCl (Thiamine 100 Mg Tab) 100 mg PO DAILY [facility] Last Admin: 10/04/21 08:06 Dose: 100 mg Documented by: Discontinued Medications Al Hydroxide/Mg Hydroxide 15 (ml/ Lidocaine HCl 15 ml) 0 ml PO ONETIME ONE Stop: 10/03/21 14:16 Last Admin: 10/03/21 14:09 Dose: 30 ml Documented by: Haloperidol Lactate (Haloperidol Lactate 5 Mg/Ml Sdv) 5 mg IVPUSH ONETIME ONE Stop: 10/03/21 00:04 Last Admin: 10/03/21 00:11 Dose: 5 mg Documented by: Multivitamins/Minerals 10 ml/Thiamine HCl 100 mg/ Folic Acid 1 mg/ Magnesium Sulfate 2 gm/ Sodium Chloride 1,015.2 mls @ 200 mls/hr IV ONETIME ONE Stop: 10/03/21 06:13 Last Admin: 10/03/21 02:00 Dose: 200 mls/hr Documented by: Potassium Chloride 20 meq/Lidocaine HCl 2 ml/ Sodium Chloride 112 mls @ 50 mls/hr IV Q2H [facility] Stop: 10/03/21 05:29 Last Admin: 10/03/21 04:04 Dose: 50 mls/hr Documented by: Potassium Chloride (Kcl In Water 20 Meq/100 Ml) Confirm Administered Dose 100 mls @ as directed .ROUTE .STK-MED ONE Stop: 10/03/21 01:37 Last Admin: 10/03/21 02:00 Dose: 50 mls/hr Documented by: Potassium Chloride (Kcl In Water 20 Meq/100 Ml) Confirm Administered Dose 100 mls @ as directed .ROUTE .STK-MED ONE Stop: 10/03/21 01:38 Last Admin: 10/03/21 02:33 Dose: Not Given Documented by: Lidocaine HCl (Lidocaine 1% 5 Ml Sdv) Confirm Administered Dose 5 ml .ROUTE .S TK-MED ONE Stop: 10/03/21 01:39 Last Admin: 10/03/21 02:33 Dose: Not Given Documented by: Lorazepam (Lorazepam 2 Mg/Ml Sdv) 2 mg IVPUSH ONETIME ONE Stop: 10/02/21 23:18 Last Admin: 10/02/21 23:19 Dose: 2 mg Documented by: Nicotine (Nicotine 21 Mg/24 Hr Patch) 21 mg TRDERM ONETIME ONE Stop: 10/03/21 15:01 Last Admin: 10/03/21 15:43 Dose: 21 mg Documented by: Pantoprazole Sodium (Pantoprazole 40 Mg Vial) 40 mg IVPUSH ONETIME ONE Stop: 10/02/21 23:18 Last Admin: 10/02/21 23:30 Dose: 40 mg Documented by: - Exam Quality Assessment: No: Supplemental Oxygen General: Alert, Oriented, Cooperative, No Acute Distress HEENT: Pupils Equal Lungs: Normal Respiratory Effort GI/Abdominal Exam: Soft, No Distention Extremities: No Pedal Edema Psy/Mental Status: Alert, Normal Affect. No: Hallucinations - Patient Data Lab Results Last 24 hrs: Laboratory Results - last 24 hr 10/04/21 10/04/21 Range/Units 04:50 04:50 WBC 4.2 L (4.5-11.0) K/uL RBC 4.49 (4.30-5.90) M/uL Hgb 13.9 D (12.0-15.0) g/dL Hct 42.0 (40.0-54.0) % MCV 94 (80-98) fL MCH 31 (27-31) pg MCHC 33 (32-36) % Plt Count 93 L (150-400) K/uL Sodium 140 (140-148) mmol/L Potassium 3.9 (3.6-5.2) mmol/L Chloride 100 (100-108) mmol/L Carbon Dioxide 34 H (21-32) mmol/L Anion Gap 9.9 (5.0-14.0) mmol/L BUN 18 (7-18) mg/dL Creatinine 1.0 (0.8-1.3) mg/dL Est Cr Clr Drug Dosing 106.46 mL/min Estimated GFR (MDRD) > 60 (>60) Glucose 102 (74-106) mg/dL Calcium 8.8 (8.5-10.1) mg/dL Total Bilirubin 0.5 D (0.2-1.0) mg/dL AST 41 H (15-37) U/L ALT 55 (12-78) U/L Alkaline Phosphatase 80 (46-116) U/L Total Protein 6.2 L (6.4-8.2) g/dL Albumin 3.2 L (3.4-5.0) g/dL Globulin 3.0 (2.3-3.5) g/dL Albumin/Globulin Ratio 1.1 L (1.2-2.2) Result Diagrams: 10/04/21 04:50 10/04/21 04:50 Sepsis Event Note - Evaluation Sepsis Screening Result: No Definite Risk - Focused Exam Vital Signs: Vital Signs Temp Pulse Resp BP Pulse Ox 10/04/21 13:00 111 H 12 122/57 L 97 10/04/21 12:00 99 10/04/21 11:00 98 21 H 96 10/04/21 10:00 101 H 19 95 10/04/21 09:00 102 H 10/04/21 08:00 93 18 130/79 10/04/21 07:00 91 20 115/75 92 L 10/04/21 06:00 98 20 146/82 H 94 L 10/04/21 05:00 101 H 16 150/83 H 97 10/04/21 04:00 35.7 C L 84 18 126/66 97 10/04/21 03:00 92 20 127/81 95 - Problem List & Annotations (1) Alcohol withdrawal delirium, acute, hyperactive SNOMED Code(s): 3764980, 94766981, 76223099629256653 Code(s): F10.231 - ALCOHOL DEPENDENCE WITH WITHDRAWAL DELIRIUM Status: Acute Current Visit: Yes (2) Alcohol dependence SNOMED Code(s): 51554489 Code(s): F10.20 - ALCOHOL DEPENDENCE, UNCOMPLICATED Status: Acute Current Visit: No Qualifiers: Substance use status: in withdrawal Complication of substance-induced condition: with delirium Qualified Code(s): F10.231 - Alcohol dependence with withdrawal delirium - Problem List Review Problem List Initiated/Reviewed/Updated: Yes - My Orders Last 24 Hours: My Active Orders 10/03/21 21:00 Melatonin 9 mg PO BEDTIME 10/04/21 09:00 Nicotine [Habitrol] 21 mg TRDERM DAILY - Plan Plan:: ASSESSMENT AND PLAN - Alcohol withdrawal with delirium tremens-withdrawal seems to be complete or nearly so at this point. Much more alert and interactive today. More stable on his feet today. Appetite good. No nausea. Patient will hopefully be able to get into [facility] in the near future. -CIWA protocol with lorazepam -Haldol for severe agitation and hallucinations -Supplement thiamine and folate -Cardiac monitoring and pulse oximetry -Outpatient treatment Alcohol dependence-reported long history of alcohol use with large quantities and previous alcohol withdrawal. -Management as above COVID-19 positive-no symptoms. Positive test was on 10/02. Hypokalemia-improved with supplementation. Maintenance issues - -DVT prophylaxis-mechanical -GI prophylaxis-PPI -Nutrition-regular Disposition -I anticipate discharge home after the hospital stay. Patient is ready for discharge at this point and we are working on a safe discharge plan with friends or family before he gets into the [facility] program. Cr Luna M.D.
[2021-10-04] MEDS: Melatonin 3 MG Tab PO SCH (21:32)
[2021-10-05] MEDS: Acetaminophen 325 MG Tab PO PRN (04:35)
[2021-10-05] MEDS: Calcium Carbonate 500 MG Tab.Chew PO PRN ×2 (04:36→08:43)
[2021-10-05] MEDS: Nicotine 21 MG/24 Hr Patch TRDERM SCH (08:34)
[2021-10-05] MEDS: Thiamine 100 MG Tab PO SCH (08:35)
[2021-10-05] MEDS: Folic Acid 1 MG Tab PO SCH (08:35)
[2021-10-05] MEDS: Pantoprazole 40 MG Tab.CR PO SCH (08:35)
[2021-10-05] MEDS: Gabapentin 400 MG Cap PO SCH (08:35)
--- NOTE | 2021-10-05 12:45 | PCM.DCSUM1 ---
Discharge Summary - Hospital Course Brief History: Mr. Norris is a 36-year-old gentleman who was admitted through the emergency department with hallucinations secondary to alcohol withdrawal. - Discharge Data Discharge Date: 10/05/21 Discharge Disposition: Home, Self-Care 01 Condition: Fair - Referral to Home Health Primary Care Physician: PCP None - Discharge Diagnosis/Problem(s) (1) Alcohol dependence SNOMED Code(s): 58842201 ICD Code: F10.20 - ALCOHOL DEPENDENCE, UNCOMPLICATED Status: Acute Current Visit: No Qualifiers: Substance use status: in withdrawal Complication of substance-induced condition: with delirium Qualified Code(s): F10.231 - Alcohol dependence with withdrawal delirium (2) Alcohol withdrawal delirium, acute, hyperactive SNOMED Code(s): 4038363, 31046148, [id number] ICD Code: F10.231 - ALCOHOL DEPENDENCE WITH WITHDRAWAL DELIRIUM Status: Acute Current Visit: Yes - Patient Summary/Data Hospital Course: Mr. Norris presented to the emergency room from [facility] with increasing confusion, hallucinations and agitation despite aggressive medication management at the detox facility. He was seen here 2 days ago after heavy alcohol use asking for detox. He was cleared and sent to [facility]. He has had progressive symptoms over the past couple of days to the point that they are not able to accommodate him because of the severity. He appears to be hallucinating and talking to someone else in the room who is not here. Work-up in the emergency room revealed obvious evidence for alcohol withdrawal with delirium tremens. Labs show mild hypokalemia but otherwise are not very impressive. On admission he was tested for COVID-19 and found to be positive. He had no significant symptoms of Covid infection during his hospitalization. He was admitted to the hospital and treated with alcohol withdrawal protocol including use of lorazepam. He was also started on regular dosing of gabapentin. Over the next few days he improved and by the time of discharge was experiencing no further symptoms of alcohol withdrawal. He was alert and oriented and physically was doing well transferring and ambulating independently. We discussed arranging treatment options for him, which he refused. He is planning on exploring inpatient or outpatient alcohol treatment himself with the assistance of family. He is instructed to quarantine for an additional 7 days because of his positive Covid test. Activity will be otherwise as tolerated and he will resume his usual diet. Follow-up appointment should be arranged with his primary care provider within 1 week. - Patient Instructions Diet: Usual Diet as Tolerated Activity: As Tolerated Other/Special Instructions: Please schedule follow-up appointment with primary care provider within 1 week. Patient and family to explore treatment options for his alcohol dependence. - Discharge Plan *PRESCRIPTION DRUG MONITORING PROGRAM REVIEWED*: Not Applicable *COPY OF PRESCRIPTION DRUG MONITORING REPORT IN PATIENT GÓMEZ: Not Applicable Home Medications: Home Meds Escitalopram [Lexapro] 20 mg PO DAILY 09/30/21 [History] Naltrexone HCl [Revia] 50 mg PO Q8HR 09/30/21 [History] hydrOXYzine HCL [hydrOXYzine] 25 mg PO Q8H 09/30/21 [History] - Discharge Summary/Plan Comment DC Time >30 min.: No Total # of Minutes for Discharge Time: 15 - Patient Data Vitals - Most Recent: Last Vital Signs Temp 96 F L 10/05/21 08:00 Pulse 96 10/05/21 10:00 Resp 18 10/05/21 08:00 BP 110/72 10/05/21 08:00 Pulse Ox 97 10/05/21 08:00 Weight - Most Recent: 194 lb 4.8 oz I&O - Last 24 hours: Intake & Output 10/04/21 10/05/21 10/05/21 22:59 06:59 14:59 Intake Total 240 Balance 240 Med Orders - Current: Current Medications Acetaminophen (Acetaminophen 325 Mg Tab) 650 mg PO Q4H PRN PRN Reason: Pain (Mild 1-3)/fever Last Admin: 10/05/21 04:35 Dose: 650 mg Documented by: Calcium Carbonate/Glycine (Calcium Carbonate 500 Mg Tab.Chew) 1,000 mg PO Q2H PRN PRN Reason: Indigestion Last Admin: 10/05/21 08:43 Dose: 1,000 mg Documented by: Folic Acid (Folic Acid 1 Mg Tab) 1 mg PO DAILY [facility] Last Admin: 10/05/21 08:35 Dose: 1 mg Documented by: Gabapentin (Gabapentin 400 Mg Cap) 400 mg PO TID [facility] Last Admin: 10/05/21 08:35 Dose: 400 mg Documented by: Haloperidol Lactate (Haloperidol Lactate 5 Mg/Ml Sdv) 5 mg IVPUSH Q4H PRN PRN Reason: Agitation/Hallucinations Last Admin: 10/04/21 05:01 Dose: 5 mg Documented by: Lorazepam (Lorazepam 2 Mg/Ml Sdv) 0.5 mg IVPUSH Q4H PRN PRN Reason: Nausea/Vomiting Lorazepam (Lorazepam 1 Mg Tab) 0 mg PO ASDIRECTED [facility]; Protocol Last Admin: 10/04/21 21:32 Dose: 1 mg Documented by: Lorazepam (Lorazepam 2 Mg/Ml Sdv) 0 mg IV ASDIRECTED [facility]; Protocol Last Admin: 10/03/21 04:37 Dose: 2 mg Documented by: Magnesium Hydroxide (Magnesium Hydroxide 400 Mg/5 Ml Susp 30 Ml Cup) 30 ml PO Q12H PRN PRN Reason: Constipation Melatonin (Melatonin 3 Mg Tab) 9 mg PO BEDTIME [facility] Last Admin: 10/04/21 21:32 Dose: 9 mg Documented by: Nicotine (Nicotine 21 Mg/24 Hr Patch) 21 mg TRDERM DAILY [facility] Last Admin: 10/05/21 08:34 Dose: 21 mg Documented by: Ondansetron HCl (Ondansetron 4 Mg/2 Ml Sdv) 4 mg IV Q6H PRN PRN Reason: Nausea/Vomiting Last Admin: 10/04/21 16:37 Dose: 4 mg Documented by: Ondansetron HCl (Ondansetron 4 Mg Tab.Dis) 4 mg PO Q6H PRN PRN Reason: Nausea able to take PO Last Admin: 10/03/21 11:11 Dose: 4 mg Documented by: Pantoprazole Sodium (Pantoprazole 40 Mg Tab.Cr) 40 mg PO BIDAC [facility] Last Admin: 10/05/21 08:35 Dose: 40 mg Documented by: Senna/Docusate Sodium (Docusate Sodium/Sennosides 50-8.6 Mg Tab) 1 tab PO BID PRN PRN Reason: Constipation Thiamine HCl (Thiamine 100 Mg Tab) 100 mg PO DAILY [facility] Last Admin: 10/05/21 08:35 Dose: 100 mg Documented by: Discontinued Medications Al Hydroxide/Mg Hydroxide 15 (ml/ Lidocaine HCl 15 ml) 0 ml PO ONETIME ONE Stop: 10/03/21 14:16 Last Admin: 10/03/21 14:09 Dose: 30 ml Documented by: Haloperidol Lactate (Haloperidol Lactate 5 Mg/Ml Sdv) 5 mg IVPUSH ONETIME ONE Stop: 10/03/21 00:04 Last Admin: 10/03/21 00:11 Dose: 5 mg Documented by: Multivitamins/Minerals 10 ml/Thiamine HCl 100 mg/ Folic Acid 1 mg/ Magnesium Sulfate 2 gm/ Sodium Chloride 1,015.2 mls @ 200 mls/hr IV ONETIME ONE Stop: 10/03/21 06:13 Last Admin: 10/03/21 02:00 Dose: 200 mls/hr Documented by: Potassium Chloride 20 meq/Lidocaine HCl 2 ml/ Sodium Chloride 112 mls @ 50 mls/hr IV Q2H [facility] Stop: 10/03/21 05:29 Last Admin: 10/03/21 04:04 Dose: 50 mls/hr Documented by: Potassium Chloride (Kcl In Water 20 Meq/100 Ml) Confirm Administered Dose 100 mls @ as directed .ROUTE .STK-MED ONE Stop: 10/03/21 01:37 Last Admin: 10/03/21 02:00 Dose: 50 mls/hr Documented by: Potassium Chloride (Kcl In Water 20 Meq/100 Ml) Confirm Administered Dose 100 mls @ as directed .ROUTE .STK-MED ONE Stop: 10/03/21 01:38 Last Admin: 10/03/21 02:33 Dose: Not Given Documented by: Lidocaine HCl (Lidocaine 1% 5 Ml Sdv) Confirm Administered Dose 5 ml .ROUTE .STK-MED ONE Stop: 10/03/21 01:39 Last Admin: 10/03/21 02:33 Dose: Not Given Documented by: Lorazepam (Lorazepam 2 Mg/Ml Sdv) 2 mg IVPUSH ONETIME ONE Stop: 10/02/21 23:18 Last Admin: 10/02/21 23:19 Dose: 2 mg Documented by: Nicotine (Nicotine 21 Mg/24 Hr Patch) 21 mg TRDERM ONETIME ONE Stop: 10/03/21 15:01 Last Admin: 10/03/21 15:43 Dose: 21 mg Documented by: Pantoprazole Sodium (Pantoprazole 40 Mg Vial) 40 mg IVPUSH ONETIME ONE Stop: 10/02/21 23:18 Last Admin: 10/02/21 23:30 Dose: 40 mg Documented by: - Exam General: Reports: Alert, Oriented, Cooperative, No Acute Distress Lungs: Reports: Clear to Auscultation, Normal Respiratory Effort Cardiovascular: Reports: Regular Rate, Regular Rhythm, No Murmurs GI/Abdominal Exam: Soft, Non-Tender, No Organomegaly, No Distention
== END 2021-10-05 13:27 | disposition home or self-care (01) | DRG 896 ==
LOC: JP.ED 22:52 → JP.ICU 10-03 00:04
PROVIDERS: ADMIT Internal Medicine; ATTEND Hospitalist
PROC: 8E0ZXY6 Isolation (ICD-10-PCS; principal; 2021-10-03)
DX: F10.231 Alcohol dependence with withdrawal delirium (principal); U07.1 COVID-19; E87.6 Hypokalemia; K21.9 Gastro-esophageal reflux disease without esophagitis; F41.9 Anxiety disorder, unspecified; F32.A Depression, unspecified; F17.210 Nicotine dependence, cigarettes, uncomplicated
CPT/HCPCS: 0241U; 36415; 80053; 83690; 85025; 85027; 96374; 96375; 99285-25; A9270-GY; C9113; J1630; J2060; J2405; J3411; J3475; J3480; J3490; J7030

== ENCOUNTER 2022-04-02 05:50 | Emergency (ER) | payer MEDICAID ==
[2022-04-02] MEDS ORDERED: Sodium Chloride 0.9% 10 ML Syringe FLUSH PRN (06:12)
[2022-04-02] MEDS ORDERED: MVI, Adult with Vitamin K 10 ML, Thiamine 100 MG, Folic Acid 1 MG, Magnesium Sulfate 2 ... IV ONE ×5 (06:12)
[2022-04-02] MEDS: Pantoprazole 40 MG Tab.CR PO SCH ×2 (06:30→10:22)
[2022-04-02] MEDS: LORazepam 2 MG/ML SDV IV SCH ×12 (06:31→23:07)
[2022-04-02 06:34] LABS: ESTIMATED GFR 118 mL/min (>60)
[2022-04-02] MEDS ORDERED: diphenhydrAMINE 50 MG/ML SDV IVPUSH ONE (06:38)
[2022-04-02] MEDS ORDERED: Haloperidol Lactate 5 MG/ML SDV IVPUSH ONE (06:38)
[2022-04-02] MEDS ORDERED: Gabapentin 300 MG Cap PO ONE ×2 (11:00→17:58)
[2022-04-02] MEDS ORDERED: Ketorolac 30 MG/ML SDV IM ONE (19:59)
[2022-04-03] MEDS: LORazepam 2 MG/ML SDV IV SCH ×4 (00:05→03:45)
[2022-04-03] MEDS ORDERED: Haloperidol Lactate 5 MG/ML SDV IVPUSH ONE ×2 (02:44→03:38)
[2022-04-03] MEDS ORDERED: diphenhydrAMINE 50 MG/ML SDV IVPUSH ONE (02:47)
[2022-04-03] MEDS: Pantoprazole 40 MG Tab.CR PO SCH (08:57)
== END 2022-04-03 11:05 | disposition home or self-care (01) ==
LOC: JP.ED 05:50
DX: F10.231 Alcohol dependence with withdrawal delirium (principal); K21.9 Gastro-esophageal reflux disease without esophagitis; Z79.899 Other long term (current) drug therapy
CPT/HCPCS: 36415; 80053; 80305; 80307; 81001; 82140; 83735; 84100; 85025; 85610; 85730; 96365; 96366; 96375; 96376; 99285; A9270; J1200; J1630; J2060; J3411; J3475; J3490; J7030